=== PATIENT | male | born 1955 | race Caucasian/White ===

== ENCOUNTER 2017-08-27 06:54 | Emergency (ER) | payer MEDICARE, MEDICAID ==
[~2017-08-27] VITALS: Ht 167.6 cm; Wt 55.0 kg
[2017-08-27 06:57] VITALS: BP 153/91
[2017-08-27] MEDS ORDERED: KETOROLAC 30 MG/1 ML IM/IV ONE (08:00)
[2017-08-27] MEDS ORDERED: KETOROLAC 30 MG/1 ML ONE (08:04)
== END 2017-08-27 09:18 | disposition home or self-care (01) ==
LOC: ED 09:00
DX: S89.91XA Unspecified injury of right lower leg, initial encounter (principal); F17.200 Nicotine dependence, unspecified, uncomplicated; X50.1XXA Overexertion from prolonged static or awkward postures, initial encounter; Y93.89 Activity, other specified; Y99.8 Other external cause status; Y92.009 Unspecified place in unspecified non-institutional (private) residence as the place of occurrence of the external cause
CPT/HCPCS: 29505; 73564; 96372; 99284; J1885